=== PATIENT | male | born 1960 | race African-American/Black ===

== ENCOUNTER 2025-09-07 10:38 | Emergency (ER) | payer OTHER ==
[~2025-09-07] VITALS: Ht 182.9 cm; Wt 100.0 kg
--- NOTE | 2025-09-07 11:46 | ED.PDOC ---
History of present illness HPI Comments 65 y/o M, with PMHx of DM II presents to the ED for CC of hyperglycemia. Patient states, he has been experiencing symptoms of elevated blood pressure readings d/t being without medications for [id number]. Patient denies confusion, dehydration, nausea, vomiting, tremors, or changes in vision. No other symptoms or modifying factors are present at this time. Patient states that he has a prescription for diabetes medications waiting for him at his pharmacy but he has yet to go pick it up. Patient is a [facility] patient. 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, Medications, Allergies Allergies: Coded Allergies: Metformin (Verified Allergy, Unknown, 09/07/25) Penicillins (Verified Allergy, Unknown, 09/07/25) Information Source: Patient Mode of Arrival: Ambulatory Timing: Months Prehospital treatment: None Friendship: None Associated signs and symptoms: None Past Medical History PAST MEDICAL HISTORY: DM Surgical History: Denies all surgeries Family History Family History: Unknown Social History Smoker: Non-Smoker Alcohol: Denies ETOH Use Drugs: Denies Drug Use Lives In: Home Constitutional: denies: chills, diaphoresis, fatigue, fever, malaise, sweats, weakness, others EENTM: denies: blurred vision, double vision, ear bleeding, ear discharge, ear drainage, ear pain, ear ringing, eye pain, eye redness, hearing loss, mouth pain, mouth swelling, nasal discharge, nose bleeding, nose congestion, nose pain, photophobia, tearing, throat pain, throat swelling, voice changes, others Respiratory: denies: cough, hemoptysis, orthopnea, SOB at rest, shortness of breath, SOB with excertion, stridor, wheezing, others Cardiovascular: denies: chest pain, dizzy spells, diaphoresis, Dyspnea on exertion, edema, irregular heart beat, left arm pain, lightheadedness, palpitations, PND, syncope, others Gastrointestinal: denies: abdomen distended, abdominal pain, blood streaked bowels, constipated, diarrhea, dysphagia, difficulty swallowing, hematemesis, melena, nausea, poor appetite, poor fluid intake, rectal bleeding, rectal pain, vomiting, others Genitourinary: denies: burning, dysuria, flank pain, frequency, hematuria, incontinence, penile discharge, penile sore, pain, testicle pain, testicle swelling, urgency, others Neurological: denies: dizziness, fainting, headache, left sided numbness, left sided weakness, numbness, paresthesia, pre-existing deficit, right sided numbness, right sided weakness, seizure, speech problems, tingling, tremors, weakness, others Musculoskeletal: denies: back pain, gout, joint pain, joint swelling, muscle pain, muscle stiffness, neck pain, others Integumetry: denies: bruises, change in color, change in hair/nails, dryness, laceration, lesions, lumps, rash, wounds, others Allergic/Immunocompromised: denies: Difficulty Healing, Frequent Infections, Hives, Itching, others Hematologic/Lymphatic: denies: anemia, blood clots, easy bleeding, easy bruising, swollen glands, others Endocrine: denies: excessive hunger, excessive sweating, excessive thirst, excessive urination, flushing, intolerance to cold, intolerance to heat, unexplained weight gain, unexplained weight loss, others Psychiatric: denies: anxiety, bipolar disorder, depression, hopeless, panic disorder, schizophrenia, sleepless, suicidal, others All Other Systems: Reviewed and Negative Physical Exam General Appearance: No Apparent Distress, Normal HEENT: Normal ENT Inspection, Pharynx Normal Neck: Full Range of Motion, Non-Tender, Normal, Normal Inspection Respiratory: Chest Non-Tender, Lungs Clear, No Accessory Muscle Use, No Respiratory Distress, Normal Breath Sounds Cardiovascular: No Edema, No Murmur, No Gallop, Normal Peripheral Pulses, Regular Rate/Rhythm Breast Exam: Deferred Gastrointestinal: No Organomegaly, Non Tender, No Pulsatile Mass, Normal Bowel Sounds, Soft Genitalia: Deferred Pelvic: Deferred Rectal: Deferred Extremities: No calf tenderness, Normal capillary refill, Normal inspection, Normal range of motion, Non-tender, No pedal edema Musculoskeletal : Apperance: Normal Neurologic: Alert, insurance verify rep II-XII nml as Tested, No Motor Deficits, Normal Affect, Normal Mood, No Sensory Deficits Cerebellar Function: Normal Reflexes: Normal Skin: Dry, Normal Color, Warm Lymphatic: No Adenopathy Was a procedure done? Was a procedure done?: No Differential Diagnosis (DM) Differential Diagnosis: Bowel Obstruction, Diabetic Coma, DKA, Encephalopathy, Gastritis, Hyperglycemia, Hypoglycemia X-Ray, Labs, Meds, VS Vital Signs Date Time Temp Pulse Resp B/P (MAP) Pulse Ox O2 Delivery O2 Flow Rate FiO2 09/07/25 11:43 98.0 75 18 104/70 (81) 100 98.0 09/07/25 10:40 98.9 88 15 126/81 100 98.9 Lab Test 09/07/25 11:49 Range/Units White Blood Count 5.3 4.4-10.8 10^3/uL Red Blood Count 5.83 4.5-5.90 10^6/uL Hemoglobin 15.9 13.5-17.5 g/dL Hematocrit 49.1 41.0-53.0 % Mean Corpuscular Volume 84.2 80.0-100.0 fL Mean Corpuscular Hemoglobin 27.2 L 28.0-32.0 pg Mean Corpuscular Hemoglobin Concent 32.3 32.0-36.0 g/dL Red Cell Distribution Width 14.3 11.8-14.3 % Platelet Count 149 140-450 10^3/uL Mean Platelet Volume 8.9 6.9-10.8 fL Neutrophils (%) (Auto) 44.6 37.0-80.0 % Lymphocytes (%) (Auto) 44.8 10.0-50.0 % Monocytes (%) (Auto) 8.9 0.0-12.0 % Eosinophils (%) (Auto) 1.3 0.0-7.0 % Basophils (%) (Auto) 0.4 0.0-2.0 % Neutrophils # (Auto) 2.4 1.6-8.6 10 ^3/uL Lymphocytes # (Auto) 2.4 0.4-5.4 10 ^3/uL Monocytes # (Auto) 0.5 0-1.3 10 ^3/uL Eosinophils # (Auto) 0.1 0-0.8 10 ^3/uL Basophils # (Auto) 0 0-0.2 10 ^3/uL Nucleated Red Blood Cells 0.1 % Sodium Level 134 L 136-145 mmol/L Potassium Level 4.5 3.5-5.1 mmol/L Chloride Level 97 L 98-107 mmol/L Carbon Dioxide Level 27 20-31 mmol/L Anion Gap 10 5-15 Blood Urea Nitrogen 8 L 9-23 mg/dL Creatinine 0.99 0.700-1.30 mg/dL Glomerular Filtration Rate Calc 85 >90 mL/min BUN/Creatinine Ratio 8.1 L 10.0-20.0 Serum Glucose 422 *H 74-106 mg/dL Calcium Level 9.3 8.7-10.4 mg/dL Beta-Hydroxybutyric Acid 1.124 H < 0.4 mmol/L Current Medications Medications (Trade) Dose Ordered Sig/Blanca Route Start Time Stop Time Status Last Admin Sodium Chloride 1,000 ml @ 1,000 mls/hr Q1H ONCE IV 09/07/25 11:45 09/07/25 12:44 DC 09/07/25 12:28 Ondansetron HCl (Zofran) 4 mg O ONCE IV 09/07/25 11:45 09/07/25 11:46 DC 09/07/25 12:29 X-Ray, Labs, Meds, VS Comment 65-year-old male here today with a concern for hyperglycemia in the setting of not using his diabetes medications over the last two months. Patient has a prescription for diabetes medications waiting for him at his pharmacy but he has yet to have a chance to go pick them up. No other complaints at this time. Labs notable for hyperglycemia with evidence of ketosis without evidence of an anion gap nor acidosis. Doubt DKA/HHS. Suspect likely combination of starvation ketosis +hyperglycemia. Patient was given a L of normal saline and Zofran and reported significant improvement in his symptoms. I stressed to the patient the importance of picking up his diabetes medications from his pharmacy and he was understanding of this. I provided him with strict return precautions and strict instructions to follow up with his primary care provider within 2-3 days for re-evaluation. If he is unable to mixing picker tender his diabetes medications, the patient was instructed to return to the ER immediately. The patient expressed understanding and was discharged in stable condition and in no distre ss. Time of 1ST Reevaluation: 11:45 Reevaluation 1ST: Unchanged Time of 2ND Reevaluation: 15:09 Reevaluation 2ND: Improved Patient Education/Counseling: Diagnosis, Treatment Family Education/Counseling: No Family Present SEPSIS Sepsis Screen Date sepsis recognized/suspect: Sep 07, 2025 Time Sepsis recognized/suspect: 1040 Recent Procedure: No On Antibiotic Therapy: No Respiratory Rate >20: No Heart Rate >90: No Temp<36 C (96.8 F) or >38.3 C: No SBP <90 or MAP <65 mmHG: No New Acute Mental Status Change: No Is the patient on CPAP, BIPAP,: No Vital Signs Date Time Temp Pulse Resp B/P (MAP) Pulse Ox O2 Delivery O2 Flow Rate FiO2 09/07/25 11:43 98.0 75 18 104/70 (81) 100 98.0 09/07/25 10:40 98.9 88 15 126/81 100 98.9 Laboratory Tests Test 09/07/25 11:49 White Blood Count 5.3 10^3/uL (4.4-10.8) Medications Medications Dose Ordered Sig/Blanca Route Start Time Stop Time Status Last Admin Dose Admin Ondansetron HCl 4 mg O ONCE IV 09/07/25 11:45 09/07/25 11:46 DC 09/07/25 12:29 Sodium Chloride 1,000 ml @ 1,000 mls/hr Q1H ONCE IV 09/07/25 11:45 09/07/25 12:44 DC 09/07/25 12:28 Departure 1 Departure Time of Disposition: 15:09 Impression: Primary Impression: Hyperglycemia Additional Impression: Ketosis Disposition: 01 HOME / SELF CARE / HOMELESS Condition: Stable Critical Care Note Critical Care Time?: Yes (30 min-critical care time only) Stability Stability form required: No Heart Score Heart Score: Heart Score Response (Comments) Value History N/A 0 EKG N/A 0 Age N/A 0 Risk Factors N/A 0 Troponin N/A 0 Total 0 I personally scribed for MAXIMO LEDESMA MD ([email or web address]) on 09/07/25 at 11:46. Electronically submitted by Danette Sanford [email or web address]). MAXIMO LEDESMA MD Sep 07, 2025 11:46
[2025-09-07 12:15] LABS: Hematocrit 49.1 % (41.0-53.0); Hemoglobin 15.9 g/dL (13.5-17.5); Mean Corpuscular Hemoglobin 27.2 pg (28.0-32.0); Mean Corpuscular Volume 84.2 fL (80.0-100.0); Nucleated Red Blood Cells % 0.1 %
[2025-09-07] MEDS: SODIUM CHLORIDE 0.9% 1,000 ML IV ONE (12:28)
[2025-09-07] MEDS: ONDANSETRON HCL 4 MG/2 ML VIAL IV ONE (12:29)
[2025-09-07 12:33] LABS: Potassium 4.5 mmol/L (3.5-5.1)
[2025-09-07 12:34] LABS: Anion Gap 10 (5-15); Carbon Dioxide 27 mmol/L (20-31)
[2025-09-07 12:35] LABS: Calcium 9.3 mg/dL (8.7-10.4); Chloride 97 mmol/L (98-107); Sodium 134 mmol/L (136-145)
[2025-09-07 12:39] LABS: BUN/Creatinine Ratio 8.1 (10.0-20.0); Blood Urea Nitrogen 8 mg/dL (9-23)
[2025-09-07 12:41] LABS: Glucose 422 mg/dL (74-106)
[2025-09-07 16:18] VITALS: BP 107/71; PULSE 74; RESP 16; TEMP 98.2; O2SAT 96
[2025-09-07 18:43] LABS: Urine Protein, UAD Negative (Negative); Urine WBC Clumps PRESENT /hpf (None Seen)
[2025-09-08] MEDS ORDERED: CEFD300C2 PO (17:28)
== END 2025-09-07 18:29 | disposition home or self-care (01) ==
LOC: EDBD 10:38 → ER 10:38
DX: E11.65 Type 2 diabetes mellitus with hyperglycemia (principal); E88.89 Other specified metabolic disorders; Z88.0 Allergy status to penicillin
CPT/HCPCS: 36415; 80048; 81001; 82010; 85025; 96361; 96374; 99285; J2405; J7030

== ENCOUNTER 2025-09-08 12:00 | Emergency (ER) | payer OTHER ==
[~2025-09-08] VITALS: Ht 188 cm; Wt 112.0 kg
[2025-09-08] MEDS: SODIUM CHLORIDE 0.9% 1,000 ML IV ONE ×2 (12:30→15:45)
[2025-09-08 12:33] LABS: Urine Protein, UAD Negative (Negative); Urine WBC Clumps PRESENT /hpf (None Seen)
--- NOTE | 2025-09-08 12:33 | ED.PDOC ---
History of Present Illness HPI Comments 65-year-old male ANGEL with prior medical history of diabetes and a chief complaint of hyperglycemia. Patient reports on being in the ER yesterday for hyperglycemia and picked up his medications today and went to [facility] for education of a needle, for which the [facility] contacted EMS. When EMS arrived on scene the patient had a blood sugar of high on the monitor. Patient denies any symptoms at this time. Denies chills, fever, N/V/D, SOB, CP. No other associated symptoms, modifiers, recent injuries or sick contacts present at this time. Chief Complaint: Hyperglycemia Time Seen by MD: 12:30 Reviewed Notes: Nurses Notes, Medications, Allergies Allergies: Coded Allergies: Metformin (Verified Allergy, Unknown, 09/07/25) Penicillins (Verified Allergy, Unknown, 09/07/25) Information Source: Patient Mode of Arrival: EMS Severity: Moderate Timing: Minutes Duration: Since onset, Minutes Prehospital treatment: None Past Medical History PAST MEDICAL HISTORY: DM Surgical History: Denies all surgeries Family History Family History: Reviewed,noncontributory to illness, Unknown Social History Smoker: Non-Smoker Alcohol: Denies ETOH Use Drugs: Denies Drug Use Lives In: Home Constitutional: denies: chills, diaphoresis, fatigue, fever, malaise, sweats, weakness, others EENTM: denies: blurred vision, double vision, ear bleeding, ear discharge, ear drainage, ear pain, ear ringing, eye pain, eye redness, hearing loss, mouth pain, mouth swelling, nasal discharge, nose bleeding, nose congestion, nose pain, photophobia, tearing, throat pain, throat swelling, voice changes, others Respiratory: denies: cough, hemoptysis, orthopnea, SOB at rest, shortness of breath, SOB with excertion, stridor, wheezing, others Cardiovascular: reports: others (Tachycardic); denies: chest pain, dizzy spells, diaphoresis, Dyspnea on exertion, edema, irregular heart beat, left arm pain, lightheadedness, palpitations, PND, syncope Gastrointestinal: denies: abdomen distended, abdominal pain, blood streaked bowels, constipated, diarrhea, dysphagia, difficulty swallowing, hematemesis, melena, nausea, poor appetite, poor fluid intake, rectal bleeding, rectal pain, vomiting, others Genitourinary: denies: burning, dysuria, flank pain, frequency, hematuria, incontinence, penile discharge, penile sore, pain, testicle pain, testicle swelling, urgency, others Neurological: denies: dizziness, fainting, headache, left sided numbness, left sided weakness, numbness, paresthesia, pre-existing deficit, right sided numbness, right sided weakness, seizure, speech problems, tingling, tremors, weakness, others Musculoskeletal: denies: back pain, gout, joint pain, joint swelling, muscle pain, muscle stiffness, neck pain, others Integumetry: reports: others (Dry mucous membrane); denies: bruises, change in color, change in hair/nails, dryness, laceration, lesions, lumps, rash, wounds Allergic/Immunocompromised: denies: Difficulty Healing, Frequent Infections, Hives, Itching, others Hematologic/Lymphatic: denies: anemia, blood clots, easy bleeding, easy bruis ing, swollen glands, others Endocrine: denies: excessive hunger, excessive sweating, excessive thirst, exc essive urination, flushing, intolerance to cold, intolerance to heat, unexplained weight gain, unexplained weight loss, others Psychiatric: denies: anxiety, bipolar disorder, depression, hopeless, panic disorder, schizophrenia, sleepless, suicidal, others All Other Systems: Reviewed and Negative Physical Exam Exam Comments Tachycardic, dry mucous membranes General Appearance: No Apparent Distress, Normal HEENT: Normal ENT Inspection, Pharynx Normal, TMs Normal Neck: Full Range of Motion, Non-Tender, Normal, Normal Inspection Respiratory: Chest Non-Tender, Lungs Clear, No Accessory Muscle Use, No Respiratory Distress, Normal Breath Sounds Cardiovascular: No Edema, No JVD, No Murmur, No Gallop, Normal Peripheral Pulses, Regular Rate/Rhythm Breast Exam: Deferred Gastrointestinal: No Organomegaly, Non Tender, No Pulsatile Mass, Normal Bowel Sounds, Soft Genitalia: Deferred Pelvic: Deferred Rectal: Deferred Extremities: No calf tenderness, Normal capillary refill, Normal inspection, Normal range of motion, Non-tender, No pedal edema Musculoskeletal : Apperance: Normal Neurologic: 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 Was a procedure done?: No Differential Dx Considerations may include: Uncontrolled diabetes, electrolyte abnormality, infectious etiology X-Ray, Labs, Meds, VS Vital Signs Date Time Temp Pulse Resp B/P (MAP) Pulse Ox O2 Delivery O2 Flow Rate FiO2 09/08/25 12:43 94 Nasal Cannula* 1 24 09/08/25 12:39 97.8 85 13 131/61 (84) 94 97.8 09/08/25 12:39 85 13 94 Nasal Cannula* 1 09/08/25 12:21 98.0 98 20 109/72 98 98.0 Lab Test 09/08/25 16:14 09/08/25 15:56 09/08/25 13:41 09/08/25 12:39 Range/Units Lactic Acid Level 1.2 0.4-2.0 mmol/L Troponin I High Sensitivity 4 5 5 </=54 ng/L POC Glucose 444 *H 70-106 mg/dl White Blood Count 4.7 4.4-10.8 10^3/uL Red Blood Count 5.78 4.5-5.90 10^6/uL Hemoglobin 15.7 13.5-17.5 g/dL Hematocrit 49.0 41.0-53.0 % Mean Corpuscular Volume 84.8 80.0-100.0 fL Mean Corpuscular Hemoglobin 27.1 L 28.0-32.0 pg Mean Corpuscular Hemoglobin Concent 31.9 L 32.0-36.0 g/dL Red Cell Distribution Width 14.7 H 11.8-14.3 % Platelet Count 153 140-450 10^3/uL Mean Platelet Volume 8.7 6.9-10.8 fL Neutrophils (%) (Auto) 45.5 37.0-80.0 % Lymphocytes (%) (Auto) 43.1 10.0-50.0 % Monocytes (%) (Auto) 9.7 0.0-12.0 % Eosinophils (%) (Auto) 1.4 0.0-7.0 % Basophils (%) (Auto) 0.3 0.0-2.0 % Neutrophils # (Auto) 2.1 1.6-8.6 10 ^3/uL Lymphocytes # (Auto) 2.0 0.4-5.4 10 ^3/uL Monocytes # (Auto) 0.5 0-1.3 10 ^3/uL Eosinophils # (Auto) 0.1 0-0.8 10 ^3/uL Basophils # (Auto) 0 0-0.2 10 ^3/uL Nucleated Red Blood Cells 0.1 % Sodium Level 134 L 136-145 mmol/L Potassium Level 4.9 3.5-5.1 mmol/L Chloride Level 99 98-107 mmol/L Carbon Dioxide Level 27 20-31 mmol/L Anion Gap 8 5-15 Blood Urea Nitrogen 16 9-23 mg/dL Creatinine 1.21 0.700-1.30 mg/dL Glomerular Filtration Rate Calc 66 >90 mL/min BUN/Creatinine Ratio 13.2 10.0-20.0 Serum Glucose 590 #*H 74-106 mg/dL Calcium Level 9.3 8.7-10.4 mg/dL Test 09/08/25 12:17 09/08/25 12:16 Range/Units Urine Color Light-otis Yellow Urine Clarity Ex.turbid Clear Urine pH 6.0 5.0-9.0 Urine Specific [place] 1.026 1.001-1.035 Urine Protein Negative Negative Urine Ketones Negative Negative Urine Blood Trace H Negative /uL Urine Nitrite Negative Negative Urine Bilirubin Negative Negative Urine Urobilinogen Normal Negative mg/dL Urine Leukocyte Esterase 3+ Negative /uL Urine RBC 12 0 - 3 /hpf Urine WBC Clumps Present None Seen /hpf Urine Microscopic WBC 614 H 0-3 /HPF Urine Squamous Epithelial Cells None seen <5 /hpf Urine Bacteria Few H None Seen /hpf Urine Glucose 4+ H Normal mg/dL POC Glucose 592 *H 70-106 mg/dl Current Medications Medications (Trade) Dose Ordered Sig/Blanca Route Start Time Stop Time Status Last Admin Sodium Chloride 1,000 ml @ 1,000 mls/hr Q1H ONCE IV 09/08/25 12:30 09/08/25 13:29 DC 09/08/25 12:30 Ceftriaxone Sodium 50 ml @ 100 mls/hr ONCE ONCE IV 09/08/25 15:45 09/08/25 16:14 DC 09/08/25 16:31 Insulin Human Regular (InsuLIN R) 10 units ONCE ONCE IV 09/08/25 15:45 09/08/25 15:46 DC 09/08/25 16:01 Sodium Chloride 1,000 ml @ 1,000 mls/hr Q1H ONCE IV 09/08/25 15:45 09/08/25 16:44 DC 09/08/25 15:45 Time of 1ST Reevaluation: 13:00 Reevaluation 1ST: Unchanged Patient Education/Counseling: Diagnosis, Treatment, Prognosis Family Education/Counseling: No Family Present SEPSIS Sepsis Screen Date sepsis recognized/suspect: Sep 08, 2025 Time Sepsis recognized/suspect: 1200 Recent Procedure: No On Antibiotic Therapy: No Respiratory Rate >20: No Heart Rate >90: Yes Temp<36 C (96.8 F) or >38.3 C: No SBP <90 or MAP <65 mmHG: No New Acute Mental Status Change: No Is the patient on CPAP, BIPAP,: No Physician Orders Electrocardigram (09/08/25 12:26) Chest Portable (09/08/25 12:26) Electrocardigram (09/08/25 13:26) Electrocardigram (09/08/25 15:26) Blood Culture (09/08/25 15:37) Vital Signs Date Time Temp Pulse Resp B/P (MAP) Pulse Ox O2 Delivery O2 Flow Rate FiO2 09/08/25 12:43 94 Nasal Cannula* 1 24 09/08/25 12:39 97.8 85 13 131/61 (84) 94 97.8 09/08/25 12:39 85 13 94 Nasal Cannula* 1 24 09/08/25 12:21 98.0 98 20 109/72 98 98.0 Laboratory Tests Test 09/08/25 12:39 09/08/25 16:14 White Blood Count 4.7 10^3/uL (4.4-10.8) Lactic Acid Level 1.2 mmol/L (0.4-2.0) Medications Medications Dose Ordered Sig/Blanca Route Start Time Stop Time Status Last Admin Dose Admin Ceftriaxone Sodium 50 ml @ 100 mls/hr ONCE ONCE IV 09/08/25 15:45 09/08/25 16:14 DC 09/08/25 16:31 Insulin Human Regular 10 units ONCE ONCE IV 09/08/25 15:45 09/08/25 15:46 DC 09/08/25 16:01 Sodium Chloride 1,000 ml @ 1,000 mls/hr Q1H ONCE IV 09/08/25 12:30 09/08/25 13:29 DC 09/08/25 12:30 Sodium Chloride 1,000 ml @ 1,000 mls/hr Q1H ONCE IV 09/08/25 15:45 09/08/25 16:44 DC 09/08/25 15:45 Departure 1 Departure Time of Disposition: 17:25 (Patient with hyperglycemia likely secondary to urinary tract infection and not having his medications. Patient's picked up his medications. Patient was offered admission to the hospital however patient refused that we would like to go home. We will discharge patient home with antibiotics. Patient already picked up his medications for diabetes) Impression: Primary Impression: Uncontrolled diabetes mellitus Additional Impression: Acute cystitis Disposition: HOME / SELF CARE / HOMELESS Condition: Stable Additional Instructions: You have a urinary tract infection. You were prescribed antibiotics. Please take as directed. You can take Tylenol Motrin as needed for pain. It is important that he follow up with the regular doctor within 1 week to ensure you are doing better. If your symptoms worsen or you have any other concerns then please return to the emergency room. e-Prescriptions Cefdinir (Cefdinir) 300 Mg Cap 1 CAP PO BID for 7 Days, #14 CAP Prov: YANG CLARKE MD 09/08/25 Discharged With: Self Critical Care Note Critical Care Time?: No Stability Stability form required: No I personally scribed for YANG CLARKE MD ([email or web address]) on 09/08/25 at 12:33. Electronically submitted by Ervin Abad ([email or web address]). YANG CLARKE MD Sep 08, 2025 12:33
[2025-09-08 12:39] VITALS: PULSE 85; RESP 13; TEMP 97.8; O2SAT 94
[2025-09-08 13:00] LABS: Hematocrit 49.0 % (41.0-53.0); Hemoglobin 15.7 g/dL (13.5-17.5); Mean Corpuscular Hemoglobin 27.1 pg (28.0-32.0); Mean Corpuscular Volume 84.8 fL (80.0-100.0); Nucleated Red Blood Cells % 0.1 %
[2025-09-08 13:01] LABS: Chloride 99 mmol/L (98-107); Potassium 4.9 mmol/L (3.5-5.1)
[2025-09-08 13:02] LABS: Anion Gap 8 (5-15); Carbon Dioxide 27 mmol/L (20-31)
[2025-09-08 13:03] LABS: Calcium 9.3 mg/dL (8.7-10.4)
[2025-09-08 13:04] LABS: Sodium 134 mmol/L (136-145)
[2025-09-08 13:08] LABS: BUN/Creatinine Ratio 13.2 (10.0-20.0); Blood Urea Nitrogen 16 mg/dL (9-23)
[2025-09-08 13:11] LABS: Glucose 590 mg/dL (74-106)
--- NOTE | 2025-09-08 13:24 | DVH ---
CHEST RADIOGRAPH INDICATION: near syncope TECHNIQUE: Single frontal view of the chest was obtained COMPARISON: None FINDINGS: Lines and Tubes: None Lungs: No focal consolidation. Bronchovascular crowding due due to low lung volumes. Bibasilar linear densities. Pleura: No effusion. No pneumothorax. Cardiomediastinal contours: Unremarkable Bones: No acute osseous abnormality. IMPRESSION: Bibasilar linear atelectasis. Otherwise, No acute cardiopulmonary disease.
[2025-09-08] MEDS: InsuLIN REG 1unit/0.01ml Soln (100units/ml) IV ONE (16:01)
[2025-09-08] MEDS ORDERED: CEFD300C2 PO (17:28)
[2025-09-08 17:47] VITALS: BP 113/61; PULSE 83; RESP 13; O2SAT 95
== END 2025-09-08 18:01 | disposition home or self-care (01) ==
LOC: ER 12:00 → EDBD 12:00 → ER 18:01
DX: E11.65 Type 2 diabetes mellitus with hyperglycemia (principal); Z88.0 Allergy status to penicillin; Z88.8 Allergy status to other drugs, medicaments and biological substances
CPT/HCPCS: 36415; 71045; 80048; 81001; 82947; 83605; 84484; 85025; 87040; 96361; 96365; 96375; 99285; J0696; J1815; J7030; 82962